=== PATIENT | male | born 1995 | race American Indian/Alaskan Native ===

== ENCOUNTER 2017-08-01 13:18 | Emergency (ER) | payer MEDICAID ==
[~2017-08-01] VITALS: Ht 5619.3 cm; Wt 69.7 kg
[2017-08-01 13:20] VITALS: BP 132/86
[2017-08-01] MEDS ORDERED: DOXY100C43 PO (13:36)
== END 2017-08-01 14:07 | disposition home or self-care (01) ==
LOC: ER 13:20
DX: J02.9 Acute pharyngitis, unspecified (principal); Z79.899 Other long term (current) drug therapy
CPT/HCPCS: 87081; 87880; 99284

== ENCOUNTER 2017-09-20 11:53 | Emergency (ER) | payer MEDICAID ==
[~2017-09-20] VITALS: Ht 170.2 cm; Wt 58.4 kg
[~2017-09-20 11:53] MED LIST: METH-360 PO; NAPR-56 PO
[2017-09-20 12:31] VITALS: BP 115/71
== END 2017-09-20 12:37 | disposition home or self-care (01) ==
LOC: ER 11:54
DX: S29.019D Strain of muscle and tendon of unspecified wall of thorax, subsequent encounter (principal); X50.0XXD Overexertion from strenuous movement or load, subsequent encounter
CPT/HCPCS: 99281

== ENCOUNTER 2017-09-30 10:17 | Emergency (ER) | payer MEDICAID ==
[~2017-09-30] VITALS: Ht 170.2 cm; Wt 68.1 kg
[2017-09-30 10:37] VITALS: BP 118/63
== END 2017-09-30 12:01 | disposition home or self-care (01) ==
LOC: ER 10:17
DX: Z00.8 Encounter for other general examination (principal)
CPT/HCPCS: 99284

== ENCOUNTER 2022-11-09 15:32 | Emergency (ER) | payer MEDICAID ==
[~2022-11-09] VITALS: Ht 170.2 cm; Wt 70.5 kg
[~2022-11-09 15:32] MED LIST changes: -NAPR-56 PO
[2022-11-09 15:39] VITALS: BP 116/68
[2022-11-09] MEDS ORDERED: cephalexin 500mg capsule PO ONE (17:05)
[2022-11-09] MEDS ORDERED: CEPH500C2 PO (17:19)
== END 2022-11-09 17:32 | disposition home or self-care (01) ==
LOC: ER 15:32
DX: R21 Rash and other nonspecific skin eruption (principal); Z79.899 Other long term (current) drug therapy
CPT/HCPCS: 99283

== ENCOUNTER 2022-11-24 14:47 | Emergency (ER) | payer MEDICAID ==
[~2022-11-24] VITALS: Ht 172.7 cm; Wt 72.7 kg
[2022-11-24 14:51] VITALS: BP 115/68
[2022-11-24] MEDS ORDERED: DOXYCYCLINE 100MG CAPSULE PO STA (15:27)
[2022-11-24] MEDS ORDERED: DOXY-356 PO (15:29)
== END 2022-11-24 16:07 | disposition home or self-care (01) ==
LOC: ER 14:47
DX: L73.9 Follicular disorder, unspecified (principal); Z79.2 Long term (current) use of antibiotics; Z79.899 Other long term (current) drug therapy
CPT/HCPCS: 99283